=== PATIENT | female | born 2000 | race Caucasian/White ===

== ENCOUNTER → 2020-02-29 15:48 | Outpatient (BNVA) | payer OTHER, SELFPAY | PROVIDERS: Family Provider Nurse Practitioner; PCP Nurse Practitioner; Visit Provider Nurse Practitioner | DX: Z20.828 Contact with and (suspected) exposure to other viral communicable diseases (principal) | CPT/HCPCS: 87635 ==

== ENCOUNTER → 2022-02-07 15:18 | Outpatient (BNVA) | payer OTHER, BC, SELFPAY | PROVIDERS: Family Provider Nurse Practitioner; PCP Nurse Practitioner; Visit Provider Nurse Practitioner Family | DX: M79.89 Other specified soft tissue disorders (principal); M79.671 Pain in right foot | CPT/HCPCS: 73630 ==

== ENCOUNTER → 2022-03-06 07:45 | Outpatient (BNVA) | payer OTHER, SELFPAY | PROVIDERS: Family Provider Nurse Practitioner; PCP Nurse Practitioner; Visit Provider Student in an Organized Health Care Education/Training Program | DX: M79.671 Pain in right foot (principal) | CPT/HCPCS: 73610; 73630 ==

== ENCOUNTER 2022-03-06 10:00 | Outpatient (CLI) | payer OTHER, SELFPAY | END 2022-03-06 10:01 | disposition home or self-care (01) | LOC: SPT 10:01 | PROVIDERS: Family Provider Nurse Practitioner; PCP Nurse Practitioner; Visit Provider Student in an Organized Health Care Education/Training Program | DX: Z46.89 Encounter for fitting and adjustment of other specified devices (principal); S93.432D Sprain of tibiofibular ligament of left ankle, subsequent encounter; X58.XXXD Exposure to other specified factors, subsequent encounter | CPT/HCPCS: 97760; L4361 ==

== ENCOUNTER 2022-03-19 10:05 | Outpatient (CLI) | payer OTHER, SELFPAY ==
--- NOTE | 2022-03-19 10:15 | MR_ITS ---
WS: [id number] MRI RIGHT ANKLE without CONTRAST. COMPARISON: Radiographs 03/06/2022 Multiplanar, multisequence imaging is performed without contrast. Increased T2 signal in the medial malleolus measures 12 x 8 mm and may be a focal area of edema relat ed to a bone contusion. There is loss of the overlying cartilage and cortex suggesting osteochondral lesion medial malleolus. There is a very small amount of edema in the inferior talar neck and also in volving the anterior process of the calcaneus and the plantar surface of the cuboid. No fractures. No significant joint effusion. The Achilles tendon is normal. There is increased T2 signal and fluid in the sinus Tarsi. The cervical ligament appears intact. Extensor and flexor tendons are normal. MR/MR ankle RT wo con* [id number] IMPRESSION: 1. Osteochondral lesion medial malleolus with loss of the overlying cartilage and marrow edema. 2. Very subtle marrow edema and a very small portion of the talar neck, anteri or process of the calcaneus and cuboid. May be contusion type of injury or rela jennifer to altered weightbearing. 3. There is a small amount of increased fluid in the sinus Tarsi the cervical ligament appears intact.
== END 2022-03-19 10:06 | disposition home or self-care (01) ==
PROVIDERS: PCP Nurse Practitioner; Visit Provider Student in an Organized Health Care Education/Training Program
DX: M89.9 Disorder of bone, unspecified
CPT/HCPCS: 73721

== ENCOUNTER 2022-05-08 15:23 | Outpatient (CLI) | payer OTHER, SELFPAY | END 2022-05-08 15:24 | disposition home or self-care (01) | LOC: SPT 15:24 | PROVIDERS: PCP Nurse Practitioner; Visit Provider Student in an Organized Health Care Education/Training Program | DX: Z46.89 Encounter for fitting and adjustment of other specified devices (principal); S93.491D Sprain of other ligament of right ankle, subsequent encounter; X58.XXXD Exposure to other specified factors, subsequent encounter | CPT/HCPCS: 97760; L1902 ==

== ENCOUNTER → 2022-06-05 11:41 | Outpatient (BNVA) | payer OTHER, SELFPAY | PROVIDERS: PCP Nurse Practitioner; Visit Provider Student in an Organized Health Care Education/Training Program | DX: S93.401A Sprain of unspecified ligament of right ankle, initial encounter (principal); X58.XXXA Exposure to other specified factors, initial encounter; M95.8 Other specified acquired deformities of musculoskeletal system | CPT/HCPCS: 73610 ==

== ENCOUNTER → 2024-11-17 14:45 | Outpatient (BNVA) | payer BC, SELFPAY | PROVIDERS: PCP Family Medicine; Visit Provider Nurse Practitioner Family | DX: O20.9 Hemorrhage in early pregnancy, unspecified (principal) | CPT/HCPCS: 84702; 85025 ==